=== PATIENT | male | born 1935 | race Asian ===

== ENCOUNTER 2023-03-22 19:10 | Inpatient (IN) | payer MEDICARE, OTHER ==
[~2023-03-22] VITALS: Ht 160 cm; Wt 60.1 kg
[2023-03-22] MEDS ORDERED: ONDANSETRON INJECTION 4 MG/2 ML (SDV) IVP PRN (19:45)
[2023-03-22] MEDS ORDERED: PROMETHAZINE INJ 25 MG/ML VIAL IVP PRN (19:45)
[2023-03-22 20:15] VITALS: BP 139/65
[2023-03-22] MEDS ORDERED: NS IV 1000 ML 1,000 ML ONE (21:10)
[2023-03-22] MEDS: NS IV 1000 ML 1,000 ML IV SCH (21:29)
[2023-03-22] MEDS: fentaNYL INJECTION 100 MCG/2 ML VIAL IVP PRN (21:30)
[2023-03-23] VITALS (7 sets, daily range): BP systolic 131–156; BP diastolic 62–79
[2023-03-23] MEDS: fentaNYL INJECTION 100 MCG/2 ML VIAL IVP PRN (02:10)
[2023-03-23] MEDS ORDERED: RT-Ipratropium/Albuterol NEB 3 ML VIAL ONE (02:32)
[2023-03-23] MEDS: RT-Ipratropium/Albuterol NEB 3 ML VIAL INH PRN (02:38)
[2023-03-23] MEDS ORDERED: fentaNYL INJECTION 100 MCG/2 ML VIAL IVP PRN (02:40)
[2023-03-23 06:02] LABS: BASOPHILS % (AUTO) 0 % (0-10); EOSINOPHILS % (AUTO) 0 % (0-10); HEMATOCRIT 38 % (40-54); HEMOGLOBIN 12.8 g/dL (13.3-17.7); LYMPHOCYTES # (AUTO) 0.3 10^3/uL (1.0-4.0); LYMPHOCYTES % (AUTO) 2 % (12-44); MEAN CORPUSCULAR HEMOGLOBIN 29 pg (25-34); MEAN CORPUSCULAR HGB CONC 34 g/dL (32-36); MEAN CORPUSCULAR VOLUME 86 fL (80-99); MEAN PLATELET VOLUME 9.3 fL (9.0-12.2); MONOCYTES # (AUTO) 1.4 10^3/uL (0.0-1.0); MONOCYTES % (AUTO) 8 % (0-12); NEUTROPHILS # (AUTO) 15.4 10^3/uL (1.8-7.8); NEUTROPHILS % (AUTO) 89 % (42-75); PLATELET COUNT 229 10^3/uL (130-400); WHITE BLOOD COUNT 17.3 10^3/uL (4.3-11.0)
[2023-03-23 06:04] LABS: ALBUMIN 3.6 GM/DL (3.2-4.5); POTASSIUM 3.5 MMOL/L (3.6-5.0)
[2023-03-23 06:06] LABS: CALCIUM 8.8 MG/DL (8.5-10.1)
[2023-03-23 06:07] LABS: TOTAL PROTEIN 6.7 GM/DL (6.4-8.2)
--- NOTE | 2023-03-23 06:07 | History & Physical ---
TREMAYNE ABRAHAM MD, RESIDENT 03/23/23 0607: HPI History of Present Illness: CC: Abdominal pain Patient presented to the ED for lower abdominal pain. He states that this has been ongoing for 2 days with associated nausea and vomiting. He states his last large bowel movement was about 1 week ago and had been having occasional small bowel movements off and on over the last week. He denies any fevers. Does note that he was having some droplets of blood per rectum. He initially thought that it was related to his chronic right inguinal hernia and thus he presented to [facility] for further evaluation. At [facility], abdominal x-ray was obtained which was concerning for possible obstruction and thus he was sent to the hospital for CT scan and further work-up. Overnight, patient was noted to have significant lower abdominal pain as well as difficulty breathing. CT scan was initially scheduled for the morning but then was obtained overnight. He also noted to be having difficulty controlling his urine. Bladder scan was done which was noted to have 900 cc of urine thus a Camargo was placed with improvement in patient's symptoms. This morning, patient still states that he is having a little bit of difficulty breathing but notes that his abdominal pain is slowly improving. He has not had a bowel movement yet. Denies any nausea and vomiting this AM. Source: patient Exam Limitations: language barrier Date seen by provider: Mar 23, 2023 Time Seen by Provider: 07:20 Attending Physician Kena,Local Physician PCP Admitting Physician: Marimar Anderson MD Attending Physician: Marimar Anderson MD Consult Date of Admission Mar 22, 2023 at 19:56 Home Medications Home Medications Reviewed patient Home Medication Reconciliation performed by pharmacy medication reconciliations drafting technician and/or nursing. Patients Allergies have been reviewed. Allergies Coded Allergies: No Known Drug Allergies (Unverified , 03/22/23) OTV-Wlfcjg-Vycyle Hx Patient Social History Smoking Status: Light Tobacco Smoker Alcohol Use?: No Tobacco type used: Cigarettes Immunizations Up To Date Influenza Vaccine Up-to-Date: No; Not Current Review of Systems ([facility]) Constitutional: no symptoms reported EENTM: no symptoms reported Respiratory: No cough; short of breath Cardiovascular: No chest pain, No palpitations Gastrointestinal: RLQ, LLQ, constipation; No diarrhea, No nausea, No vomiting Genitourinary: No dysuria; incontinence Musculoskeletal: no symptoms reported Skin: no symptoms reported Psychiatric/Neurological: No Symptoms Reported Reviewed Test Results Reviewed Test Results Lab Laboratory Tests 03/23/23 05:28: White Blood Count 17.3H, Red Blood Count 4.43, Hemoglobin 12.8L, Hematocrit 38L, Mean Corpuscular Volume 86, Mean Corpuscular Hemoglobin 29, Mean Corpuscular Hemoglobin Concent 34, Red Cell Distribution Width 13.3, Platelet Count 229, Mean Platelet Volume 9.3, Immature Granulocyte % (Auto) 1, Neutrophils (%) (Auto) 89H, Lymphocytes (%) (Auto) 2L, Monocytes (%) (Auto) 8, Eosinophils (%) (Auto) 0, Basophils (%) (Auto) 0, Neutrophils # (Auto) 15.4H, Lymphocytes # (Auto) 0.3L, Monocytes # (Auto) 1.4H, Eosinophils # (Auto) 0.0, Basophils # (Auto) 0.0, Immature Granulocyte # (Auto) 0.1, Neutrophils % (Manual) 88, Lymphocytes % (Manual) 3, Monocytes % (Manual) 9, Blood Morphology Comment NORMAL, Sodium Level 134L, Potassium Level 3.5L, Chloride Level 104, Carbon Dioxide Level 19L, Anion Gap 11, Blood Urea Nitrogen 19H, Creatinine 1.43H, Estimat Glomerular Filtration Rate 48, BUN/Creatinine Ratio 13, Glucose Level 1 11H, Calcium Level 8.8, Corrected Calcium 9.1, Total Bilirubin 1.4H, Aspartate Amino Transf (AST/SGOT) 34, Alanine Aminotransferase (ALT/SGPT) 28, Alkaline Phosphatase 126, Total Protein 6.7, Albumin 3.6 03/23/23 08:24: Urine Color [Pending], Urine Clarity [Pending], Urine pH [Pending], Urine Specific [place] [Pending], Urine Protein [Pending], Urine Glucose (UA) [Pending], Urine Ketones [Pending], Urine Nitrite [Pending], Urine Bilirubin [Pending], Urine Urobilinogen [Pending], Urine Leukocyte Esterase [Pending], Urine RBC (Auto) [Pending], Urine RBC [Pending], Urine WBC [Pending], Urine Crystals [Pending], Urine Bacteria [Pending], Urine Casts [Pending], Urine Mucus [Pending], Urine Culture Indicated [Pending] Radiology Chest x-ray (03/22/2023): IMPRESSION: Enteric catheter is present extending into the right upper abdomen, likely within the distal stomach. Mild background interstitial pulmonary opacities of uncertain chronicity. This may simply relate to mild chronic interstitial lung disease, though interstitial infiltrate or even interstitial edema cannot completely be excluded. CT abdomen/pelvis (03/23/2023): IMPRESSION: Small dependently layering bilateral pleural effusions with adjacent scarring and/atelectasis. Mild infiltrate not completely excluded though felt less likely. Mural thickening of the sigmoid colon related to poor distention versus colitis. Mild fat stranding of the proximal left ureter and central left kidney. This could relate to a urinary tract infection. Recommend correlation with urinary analysis. No bowel obstruction with enteric catheter extending into the body of the stomach. Large fat containing right inguinal hernia which displaces the base of the penis. Indeterminate renal and hepatic hypodensities which are not completely evaluated without use of intravenous contrast. Statistically, these likely relate to cysts. Physical Exam-([facility]) Physical Exam Vital Signs VS - Last 72 Hours, by Label 03/22/23 03/23/23 03/23/23 03/23/23 20:15 00:00 02:38 03:41 Temp 37.6 37.3 36.6 Pulse 89 96 109 Resp 18 24 20 B/P (MAP) 139/65 (89) 145/72 (96) 146/77 (100) Pulse Ox 96 94 90 O2 Delivery Room Air Nasal Cannula O2 Flow Rate 2.00 03/23/23 03/23/23 03/23/23 03/23/23 07:28 09:48 09:56 11:38 Temp 37.2 37.4 Pulse 108 103 Resp 17 16 B/P (MAP) 146/74 (98) 146/75 (98) Pulse Ox 98 98 95 O2 Delivery Nasal Cannula Nasal Cannula Nasal Cannula Nasal Cannula O2 Flow Rate 3.00 3.00 2.00 2.00 Capillary Refill : General Appearance: no apparent distress HEENT: PERRL/EOMI Neck: full range of motion Respiratory: lungs clear, normal breath sounds, no respiratory distress, no accessory muscle use Cardiovascular: regular rate, rhythm, no edema, no murmur Gastrointestinal: abnormal bowel sounds (Hypoactive); No distended; tenderness (Mild left lower and right lower quadrant tenderness), other (NG tube in place) Genital/Rectal: other (Right inguinal hernia, reducible) Extremities: normal range of motion Neurologic/Psychiatric: alert, normal mood/affect, oriented x 3 Skin: normal color Assessment/Plan Assessment/Plan Admission Status: Inpatient Order (span 2 midnights) Reason for Inpatient Admission: Concern for bowel obstruction (1) Urinary tract infection Status: Acute Assessment & Plan: CT abdomen notable for mild fat stranding around the ureters. UA positive for UTI, blood likely from trauma due to camargo placement. Patient technically meets sepsis criteria due to leukocytosis and tachycardia. Plan: -Starting IV ceftriaxone 1g daily for 7 days -follow urine culture -trend daily CBC -Patient may need eventual discharge with catheter supplies as he likely has retention. Would benefit from urology f/u in the outpatient (2) Sepsis Status: Acute Assessment & Plan: Likely urosepsis, meeting criteria with tachycardia and leukocytosis. Plan: -See above (3) Bowel obstruction Status: Acute Assessment & Plan: Patient initially admitted for bowel obstruction management due to to obstruction noted on outpatient abdominal x-ray. Patient has been n.p.o., has an NG tube in place and pain is currently well controlled at this time. Patient is receiving fluids. CT abdomen was negative for obstruction. Plan: -Will pull NG tube today -CLD -Monitor for distention and abdominal pain (4) Shortness of breath Status: Acute Assessment & Plan: Likely due to sepsis. Plan: -Continue plan per above -Wean oxygen as tolerated. (5) Hypertension Status: Chronic Assessment & Plan: Holding home meds for now, consider restarting if SBP > 150. (6) Inguinal hernia Status: Chronic Assessment & Plan: Consulted surgery for evaluation. Likely will complete repai r outpatient if indicated. MARIMAR ANDERSON MD 03/23/23 1526: Home Medications Allergies Coded Allergies: No Known Drug Allergies (Unverified , 03/22/23) Supervisory-Addendum Brief Supervisory Addendum I personally performed the lo portions of the visit, discussed case with resident and concur with resident documentation of history, physical exam, assessment and treatment plan unless otherwise noted. Abdominal pain likely 2/2 severe retention, since camargo placement pain has almost resolved. Will D/c NG and start CLD UTI Urinary Retention Sepsis: Resolved Large R inguinal hernia BPH TREMAYNE ABRAHAM MD, RESIDENT Mar 23, 2023 06:07 MARIMAR ANDERSON MD Mar 23, 2023 15:26
[2023-03-23 06:08] LABS: BILIRUBIN,TOTAL 1.4 MG/DL (0.1-1.0)
[2023-03-23 06:10] LABS: CREATININE SERUM 1.43 MG/DL (0.60-1.30)
[2023-03-23 06:53] LABS: LYMPHOCYTES % (MANUAL) 3 %; MONOCYTES % (MANUAL) 9 %; NEUTROPHILS % (MANUAL) 88 %; RBC MORPH NORMAL
--- NOTE | 2023-03-23 07:54 | Diagnostic Imaging Report ---
PROCEDURE: CT chest, abdomen, and pelvis without contrast. TECHNIQUE: Multiple contiguous axial images were obtained through the chest, abdomen, and pelvis without the use of intravenous contrast. Auto Exposure Controls were utilized during the CT exam to meet ALARA standards for radiation dose reduction. INDICATION: Small bowel obstruction COMPARISON: Radiograph the chest dated 03/22/2023 FINDINGS: Enteric catheter is identified extending into the body of the stomach. No pathologically enlarged lymph nodes within the chest. Scattered vascular calcifications without aneurysmal dilatation of the thoracic aorta. This includes calcifications within the coronary arteries. The heart is within normal limits in size. No significant pericardial effusion. Tiny bibasilar pleural effusions. No pneumothorax. Mild patchy reticular and groundglass opacities are identified, particularly within the inferior bilateral lower lobes. Predominantly calcified 1 cm right upper lobe pulmonary nodule. Additional densely calcified immediately adjacent right upper lobe pulmonary nodule is also present. Scattered degenerative changes without acute osseous abnormality within the chest. Indeterminate 1 cm hypodensity within the left hepatic lobe. The unenhanced liver is otherwise unremarkable. The unenhanced spleen is unremarkable. The adrenal glands are unremarkable. The pancreas is unremarkable. Mild fat stranding is identified adjacent to the proximal left ureter and central left pelvis. No obstructing calculus. Indeterminate hypodensities within bilateral kidneys. Bilateral kidneys and ureters are otherwise unremarkable. Advanced vascular calcifications without aneurysmal dilatation of the abdominal aorta. Large sized fat-containing right inguinal hernia which displaces the base of the penis. Sanchez catheter is present within the decompressed urinary bladder. The urinary bladder is unable to be evaluated secondary to decompression. The prostate gland is enlarged. No bowel obstruction or pneumatosis. Mild mural thickening of the sigmoid colon, though this region is not well-distended. No significant adenopathy, free air, or free fluid within the abdomen or pelvis. Mild S-shaped curvature of the spine with scattered osseous degenerative changes without acute osseous abnormality IMPRESSION: Small dependently layering bilateral pleural effusions with adjacent scarring and/atelectasis. Mild infiltrate not completely excluded though felt less likely. Mural thickening of the sigmoid colon related to poor distention versus colitis. Mild fat stranding of the proximal left ureter and central left kidney. This could relate to a urinary tract infection. Recommend correlation with urinary analysis. No bowel obstruction with enteric catheter extending into the body of the stomach. Large fat containing right inguinal hernia which displaces the base of the penis. Indeterminate renal and hepatic hypodensities which are not completely evaluated without use of intravenous contrast. Statistically, these likely relate to cysts. Additional findings as described above. Agree with the majority of the preliminary interpretation. However, final report was called to patient's nurse as initial report did not mention the potential fat stranding about the proximal left ureter and central left kidney. Report is called to [facility]-Laura Millan, nurse by anitra at 7:53a.m. Dictated by: Dictated on workstation # [id number]
--- NOTE | 2023-03-23 08:37 | Diagnostic Imaging Report ---
Indication: NG tube placement COMPARISON: None available TECHNIQUE: 2 radiographs the chest dated 03/22/2023 FINDINGS: Enteric catheter is present with the distal tip and sidehole extending into the upper abdomen with the distal tip extending into the right upper abdomen. Low lung volumes with mild diffuse interstitial pulmonary opacities. No significant pleural effusion. No pneumothorax. Scattered osseous degenerative changes without acute osseous abnormality. IMPRESSION: Enteric catheter is present extending into the right upper abdomen, likely within the distal stomach. Mild background interstitial pulmonary opacities of uncertain chronicity. This may simply relate to mild chronic interstitial lung disease, though interstitial infiltrate or even interstitial edema cannot completely be excluded. Dictated by: Dictated on workstation # [id number]
[2023-03-23 08:56] LABS: CLARITY,URINE CLOUDY; COLOR,URINE YELLOW; PH,URINE 5.5 (5-9); PROTEIN,URINE 1+ (NEGATIVE)
[2023-03-23 08:57] LABS: BACTERIA,URINE MODERATE /HPF; BILIRUBIN,URINE NEGATIVE (NEGATIVE); GLUCOSE, URINE (UA) NEGATIVE (NEGATIVE); KETONES,URINE NEGATIVE (NEGATIVE); LEUKOCYTE ESTERASE ,URINE 1+ (NEGATIVE); NITRITE,URINE NEGATIVE (NEGATIVE); RBC,URINE >100 /HPF; SQUAMOUS EPITHELIAL CELL,UR RARE /HPF; WBC,URINE >100 /HPF
--- NOTE | 2023-03-23 09:11 | Consultation - Surgery ---
POLANCO 03/23/23 0911: History of Present Illness History of Present Illness Patient Consulted On([place]/time) 03/23/23 09:02 Date Seen by Provider: Mar 23, 2023 Time Seen by Provider: 09:00 History of Present Illness CC abdominal pain HPI: 87 y/o male presented to ED last night at around 8 pm with intense abdominal pain. He says his pain started at around 2 am yesterday and progressively worsened until the pain was so bad he could not breath. He feels pain in the LLQ and RLQ and abdomen is distended. Describes the pain as "heavy".He reported BM as normal but he was not able to urinate for past 3 days. Bladder scan showed 900cc of fluid so a camargo was placed. CT from last night showed mild fat stranding adjacent to the proximal left ureter, enlarged prostate, and large sized fat-containing right inguinal hernia which displaces the base of the penis. Denies any chest pain, or fever but had some nausea and vomiting before his arrival to the ED. WBC is 17.3 Allergies and Home Medications Allergies Coded Allergies: No Known Drug Allergies (Unverified , 03/22/23) Patient Home Medication List Home Medication List Reviewed: Yes Alprazolam (Xanax) 0.5 Mg Tablet, 0.5 MG PO HS PRN for ANXIETY, (Reported) Entered as Reported by: WILL ALVARADO on 03/23/231634 Last Action: New Order Aspirin (Aspirin) 81 Mg Tab.chew, 81 MG PO DAILY, (Reported) Entered as Reported by: WILL ALVARADO on 03/23/231634 Last Action: New Order Atorvastatin Calcium (Lipitor) 10 Mg Tablet, 10 MG PO HS, (Reported) Entered as Reported by: WILL ALVARADO on 03/23/231634 Last Action: New Order Diltiazem HCl (Diltiazem HCl) 30 Mg Tablet, 30 MG PO BID, (Reported) Entered as Reported by: WILL ALVARADO on 03/23/231634 Last Action: New Order Pantoprazole Sodium (Protonix) 40 Mg Tablet.dr, 40 MG PO DAILY, (Reported) Entered as Reported by: WILL ALVARADO on 03/23/231634 Last Action: New Order Past Kdtminf-Quofmd-Crwxes Hx Patient Social History Smoking Status: Former Smoker (smoked 2 cigs a day until 2 years ago. ) Alcohol Use?: Yes (drank occasionally until 2 years ago) Cardiovascular Cardiac Disorders: Angina (managed with diltiazem 30mg ) Gastrointestinal Gastrointestinal Disorders: Abdominal Hernia (Right inguinal hernia ), Gastroesophageal Reflux (takes aciloc 150) Review of Systems-General Constitutional: no symptoms reported; No dizziness, No fever, No malaise, No weakness EENTM: No blurred vision, No double vision Respiratory: No cough; short of breath Gastrointestinal: RLQ (feels full, not tender), LLQ (feels full not tender ) Genitourinary: see HPI, decreased output; No discharge, No hematuria Musculoskeletal: no symptoms reported; No back pain, No joint pain Skin: no symptoms reported; No change in color Psychiatric/Neurological: No Symptoms Reported; Denies Headache Physical Exam-General Problems Physical Exam Vital Signs Vital Signs - First Documented 03/22/23 03/23/23 20:15 02:38 Temp 37.6 Pulse 89 Resp 18 B/P (MAP) 139/65 (89) Pulse Ox 96 O2 Delivery Room Air O2 Flow Rate 2.00 Capillary Refill : General Appearance: WD/WN, no apparent distress Respiratory: normal breath sounds, no respiratory distress, no accessory muscle use Cardiovascular: no edema, no murmur Gastrointestinal: normal bowel sounds, non tender, distended, hernia (R inguinal ) Extremities: no pedal edema, normal capillary refill Neurologic/Psychiatric: alert, normal mood/affect, oriented x 3 Skin: normal color, warm/dry Data Review Labs Laboratory Tests 03/23/23 05:28: White Blood Count 17.3H, Red Blood Count 4.43, Hemoglobin 12.8L, Hematocrit 38L, Mean Corpuscular Volume 86, Mean Corpuscular Hemoglobin 29, Mean Corpuscular Hemoglobin Concent 34, Red Cell Distribution Width 13.3, Platelet Count 229, Mean Platelet Volume 9.3, Immature Granulocyte % (Auto) 1, Neutrophils (%) (Auto) 89H, Lymphocytes (%) (Auto) 2L, Monocytes (%) (Auto) 8, Eosinophils (%) (Auto) 0, Basophils (%) (Auto) 0, Neutrophils # (Auto) 15.4H, Lymphocytes # (Auto) 0.3L, Monocytes # (Auto) 1.4H, Eosinophils # (Auto) 0.0, Basophils # (Auto) 0.0, Immature Granulocyte # (Auto) 0.1, Neutrophils % (Manual) 88, Lymphocytes % (Manual) 3, Monocytes % (Manual) 9, Blood Morphology Comment NORMAL, Sodium Level 134L, Potassium Level 3.5L, Chloride Level 104, Carbon Dioxide Level 19L, Anion Gap 11, Blood Urea Nitrogen 19H, Creatinine 1.43H, Estimat Glomerular Filtration Rate 48, BUN/Creatinine Ratio 13, Glucose Level 111H, Calcium Level 8.8, Corrected Calcium 9.1, Total Bilirubin 1.4H, Aspartate Amino Transf (AST/SGOT) 34, Alanine Aminotransferase (ALT/SGPT) 28, Alkaline Phosphatase 126, Total Protein 6.7, Albumin 3.6 03/23/23 08:24: Urine Color YELLOW, Urine Clarity CLOUDY, Urine pH 5.5, Urine Specific [place] 1.020, Urine Protein 1+H, Urine Glucose (UA) NEGATIVE, Urine Ketones NEGATIVE, Urine Nitrite NEGATIVE, Urine Bilirubin NEGATIVE, Urine Urobilinogen 1.0, Urine Leukocyte Esterase 1+H, Urine RBC (Auto) 3+H, Urine RBC >100H, Urine WBC >100H, Urine Squamous Epithelial Cells RARE, Urine Crystals NONE, Urine Bacteria MODERATEH, Urine Casts NONE, Urine Mucus NEGATIVE, Urine Culture Indicated YES Assessment/Plan Assessment/Plan Assessment/Plan Assessment: Urinary retention R inguinal hernia enlarged prostate leukocytosis Plan: NPO continue monitoring wbc f/u on urinalysis and culture YAHAIRA CARTERTT Kaci WINSLOW 03/24/23 1011: History of Present Illness History of Present Illness History of Present Illness Consult requested by Dr. Whitley for obstruction/right inguinal hernia. 87 year old male with abdominal pain distention for several days. Not had a bm for several days, and unable to urinate for about 3 days. Feeling better at time of me seeing him and has an NG tube and camargo catheter. Has a right inguinal hernia that has been present for 15 years. Has causes slight discomfort from time to time. Does go in and out. Had x ray suggestive of sbo. and CT scan as noted above. Allergies and Home Medications Allergies Coded Allergies: No Known Drug Allergies (Unverified , 03/22/23) Patient Home Medication List Home Medication List Reviewed: Yes Alprazolam (Xanax) 0.5 Mg Tablet, 0.5 MG PO HS PRN for ANXIETY, (Reported) Entered as Reported by: WILL ALVARADO on 03/23/231634 Last Action: New Order Aspirin (Aspirin) 81 Mg Tab.chew, 81 MG PO DAILY, (Reported) Entered as Reported by: WILL ALVARADO on 03/23/231634 Last Action: New Order Atorvastatin Calcium (Lipitor) 10 Mg Tablet, 10 MG PO HS, (Reported) Entered as Reported by: WILL ALVARADO on 03/23/231634 Last Action: New Order Diltiazem HCl (Diltiazem HCl) 30 Mg Tablet, 30 MG PO BID, (Reported) Entered as Reported by: WILL ALVARADO on 03/23/231634 Last Action: New Order Pantoprazole Sodium (Protonix) 40 Mg Tablet.dr, 40 MG PO DAILY, (Reported) Entered as Reported by: WILL ALVARADO on 03/23/231634 Last Action: New Order Past Zzzscki-Vufkad-Oetftm Hx Patient Social History Smoking Status: Former Smoker (smoked 2 cigs a day until 2 years ago. ) Reviewed Nursing Assessment Reviewed/Agree w Nursing PMH: Yes Family Medical History Significant Family History: No Pertinent Family Hx Review of Systems-General Constitutional: No chills, No diaphoresis EENTM: No blurred vision, No double vision Respiratory: No cough, No dyspnea on exertion; short of breath Cardiovascular: No chest pain, No palpitations Gastrointestinal: RLQ (feels full, not tender), LLQ (feels full not tender ), abdominal pain Genitourinary: decreased output; No discharge, No hematuria Musculoskeletal: No back pain, No joint pain Skin: No change in color, No change in hair/nails Psychiatric/Neurological: Denies Anxiety, Denies Depressed, Denies Emotional Problems All Other Systems Reviewed Negative Unless Noted: Yes (Negative excepted noted.) Physical Exam-General Problems Physical Exam General Appearance: no apparent distress, thin HEENT: PERRL/EOMI, normal ENT inspection Neck: non-tender, supple Respiratory: chest non-tender, no respiratory distress, no accessory muscle use Cardiovascular: regular rate, rhythm, no JVD Gastrointestinal: distended (minimal), hernia (R inguinal reduces) Rectal: deferred Back: normal inspection, no CVA tenderness Extremities: no pedal edema, normal capillary refill Neurologic/Psychiatric: alert, normal mood/affect, oriented x 3 Skin: normal color, warm/dry Lymphatic: no adenopathy Assessment/Plan Assessment/Plan Assessment/Plan Lower abodminal pain Urinary retention R inguinal hernia enlarged prostate leukocytosis NPO Small bowel follow through to prove no obstruction If normal will remove NG tube and start on clears. Ceftriaxone f/u on urinalysis and culture Consider repair of hernia as outpatient Supervisory-Addendum Brief Verification & Attestation Participated in pt care: history, MDM, physical Personally performed: exam, history, MDM, supervision of care Care discussed with: Medical Student Procedures: n/a Results interpretation: Verified all documentation Verification and Attestation of Medical Student E/M Service A medical student performed and documented this service in my presence. I reviewed and verified all information documented by the medical student and made modifications to such information, when appropriate. I personally performed the physical exam and medical decision making. Ilia Carter, Mar 23, 2023,19:13 POLANCO Mar 23, 2023 09:11 ILIA CARTER DO Mar 24, 2023 10:11
[2023-03-23] MEDS: NS IV 1000 ML 1,000 ML IV SCH ×2 (09:47→23:47)
[2023-03-23] MEDS: cefTRIAXone IV/IM 1,000 MG in NS (IVPB) 50 ML 50 ML IV SCH (09:49)
[2023-03-23] MEDS ORDERED: DIATRIZOATE MEGLUM/SODIUM 37% 120 ML (GASTROGRAFIN) NG ONE (12:45)
--- NOTE | 2023-03-23 15:50 | Diagnostic Imaging Report ---
INDICATION: Abdominal pain and distention. TECHNIQUE: Small bowel study performed with injection of 120 mL of Gastrografin through the indwelling NG tube. FINDINGS: Stomach fills and empties promptly. Small bowel is normal in caliber throughout with no stricture or focal lesion. Contrast reached the right colon within 40 minutes. IMPRESSION: No evidence of small bowel obstruction. Dictated by: Dictated on workstation # [id number]
[2023-03-23] MEDS: TAMSULOSIN 0.4 MG (FLOMAX) CAP PO SCH ×2 (16:31→16:55)
[2023-03-23] MEDS ORDERED: ALPR0.5T PO (16:35)
[2023-03-23] MEDS ORDERED: DILT30TA PO (16:35)
[2023-03-23] MEDS ORDERED: ASPI-999 PO (16:35)
[2023-03-23] MEDS ORDERED: PANT40TA2 PO (16:35)
[2023-03-23] MEDS ORDERED: ATOR10TA PO (16:35)
[2023-03-24 04:52] VITALS: BP 111/52
[2023-03-24 06:10] LABS: BASOPHILS % (AUTO) 1 % (0-10); EOSINOPHILS # (AUTO) 0.1 10^3/uL (0.0-0.3); EOSINOPHILS % (AUTO) 2 % (0-10); HEMATOCRIT 33 % (40-54); HEMOGLOBIN 11.5 g/dL (13.3-17.7); LYMPHOCYTES # (AUTO) 1.2 10^3/uL (1.0-4.0); LYMPHOCYTES % (AUTO) 14 % (12-44); MEAN CORPUSCULAR HEMOGLOBIN 30 pg (25-34); MEAN CORPUSCULAR HGB CONC 35 g/dL (32-36); MEAN CORPUSCULAR VOLUME 84 fL (80-99); MEAN PLATELET VOLUME 9.2 fL (9.0-12.2); MONOCYTES # (AUTO) 0.9 10^3/uL (0.0-1.0); MONOCYTES % (AUTO) 11 % (0-12); NEUTROPHILS # (AUTO) 6.1 10^3/uL (1.8-7.8); NEUTROPHILS % (AUTO) 73 % (42-75); PLATELET COUNT 200 10^3/uL (130-400); WHITE BLOOD COUNT 8.4 10^3/uL (4.3-11.0)
--- NOTE | 2023-03-24 06:12 | Progress Note ---
Subjective Subjective/Events-last exam Patient states he feels much better this morning. He is not having any shortness of breath and has more strength in him. He did have a bowel movement this morning that had blood in it. He states he was having some droplets of blood prior to presenting to the hospital but today's amount of blood was worse than usual. He otherwise would be okay with going home today. Review of Systems General: No Fatigue; Appetite HEENT: No Head Aches Pulmonary: No Dyspnea, No Cough Cardiovascular: No: Chest Pain, Palpitations, Edema Gastrointestinal: Hematochezia; No: Nausea, Vomiting, Abdominal Pain, Diarrhea, Constipation Genitourinary: No Dysuria, No Frequency Focused Exam Lactate Level 03/23/23 10:55: Lactic Acid Level 1.43 Objective Exam Last Set of Vital Signs Vital Signs Date Time Temp Pulse Resp B/P (MAP) Pulse Ox O2 Delivery O2 Flow Rate FiO2 03/24/23 04:52 36.9 93 20 111/52 (71) 92 Room Air 03/23/23 11:38 2.00 Capillary Refill : I&O Intake and Output 03/24/23 00:00 Intake Total 895 ml Output Total 2800 ml Balance -1905 ml Intake Oral 895 ml Output Urine Total 2800 ml # Bowel Movements 2 General: Alert, Oriented X3 HEENT: Mucous Memb Moist/[place] Neck: Supple Lungs: Clear to Auscultation Heart: Regular Rate, No Murmurs Abdomen: Normal Bowel Sounds, Soft, No Tenderness Extremities: No Edema Skin: No Rashes Neuro: Normal Speech Results/Procedures Lab Laboratory Tests 03/23/23 08:24: Urine Color YELLOW, Urine Clarity CLOUDY, Urine pH 5.5, Urine Specific [place] 1.020, Urine Protein 1+H, Urine Glucose (UA) NEGATIVE, Urine Ketones NEGATIVE, Urine Nitrite NEGATIVE, Urine Bilirubin NEGATIVE, Urine Urobilinogen 1.0, Urine Leukocyte Esterase 1+H, Urine RBC (Auto) 3+H, Urine RBC >100H, Urine WBC >100H, Urine Squamous Epithelial Cells RARE, Urine Crystals NONE, Urine Bacteria MODERATEH, Urine Casts NONE, Urine Mucus NEGATIVE, Urine Culture Indicated YES 03/23/23 10:55: Lactic Acid Level 1.43 03/24/23 06:02: Radiology Chest x-ray (03/22/2023): IMPRESSION: Enteric catheter is present extending into the right upper abdomen, likely within the distal stomach. Mild background interstitial pulmonary opacities of uncertain chronicity. This may simply relate to mild chronic interstitial lung disease, though interstitial infiltrate or even interstitial edema cannot completely be excluded. CT abdomen/pelvis (03/23/2023): IMPRESSION: Small dependently layering bilateral pleural effusions with adjacent scarring and/atelectasis. Mild infiltrate not completely excluded though felt less likely. Mural thickening of the sigmoid colon related to poor distention versus colitis. Mild fat stranding of the proximal left ureter and central left kidney. This could relate to a urinary tract infection. Recommend correlation with urinary analysis. No bowel obstruction with enteric catheter extending into the body of the stomach. Large fat containing right inguinal hernia which displaces the base of the penis. Indeterminate renal and hepatic hypodensities which are not completely evaluated without use of intravenous contrast. Statistically, these likely relate to cysts. Assessment/Plan Assessment/Plan Admission Status: Inpatient Order (span 2 midnights) (1) Urinary tract infection Status: Acute Assessment & Plan: CT abdomen notable for mild fat stranding around the ureters. UA positive for UTI, blood likely from trauma due to camargo placement. Patient technically meets sepsis criteria due to leukocytosis and tachycardia. Plan: -Continue IV ceftriaxone 1g daily for 7 days -urine culture pending -trend daily CBC -Removing Camargo today to see if patient is able to urinate on his own -Flomax started to see if this helps with urination -If patient is discharged today will send home on amoxicillin as he was receiving this antibiotic at home. We will follow-up urine culture to see if an tibiotic needs to be adjusted. (2) Sepsis Status: Resolved Assessment & Plan: Likely urosepsis, meeting criteria with tachycardia and leukocytosis. Leukocytosis and tachycardia has resolved as of this AM. Plan: -See above (3) Bowel obstruction Status: Resolved Assessment & Plan: Patient initially admitted for bowel obstruction management due to to obstruction noted on outpatient abdominal x-ray. CT abdomen was negative for obstruction and repeat x-ray was negative for obstruction. Plan: -Okay for regular diet (4) Shortness of breath Status: Resolved Assessment & Plan: Likely due to sepsis. Patient off of oxygen. Plan: -Continue to monitor respiratory status (5) Hypertension Status: Chronic Assessment & Plan: Holding home meds for now, consider restarting if SBP > 150. (6) Inguinal hernia Status: Chronic Assessment & Plan: Consulted surgery for evaluation. Hernia was reduced yesterday manually which likely may have caused patient's increased blood in stool. Plan: We will have surgery reevaluate (7) Hematochezia Status: Acute Assessment & Plan: Hemoglobin stable. See above TREMAYNE ABRAHAM MD, RESIDENT Mar 24, 2023 06:12
[2023-03-24 06:42] LABS: ALBUMIN 2.8 GM/DL (3.2-4.5); BILIRUBIN,TOTAL 0.8 MG/DL (0.1-1.0); CREATININE SERUM 0.81 MG/DL (0.60-1.30); POTASSIUM 3.1 MMOL/L (3.6-5.0); TOTAL PROTEIN 5.4 GM/DL (6.4-8.2)
[2023-03-24 07:17] VITALS: BP 109/62
[2023-03-24] MEDS ORDERED: POTASSIUM CHLORIDE 20 MEQ TABLET PO ONE ×2 (07:30→09:30)
--- NOTE | 2023-03-24 08:04 | Progress Note - Surgery ---
POLANCO 03/24/23 0804: Subjective Date Seen by a Provider: Mar 24, 2023 Time Seen by a Provider: 07:45 Subjective/Events-last exam Patient feels well today and has minimal pain in the abdomen and describes is as "nothing" compared to yesterday. Small bowel study from yesterday showed no obstruction and patient had 2 episodes of diarrhea post study. wbc dropped from 17.3 to 8.4 today. NG tube was removed. Patient desires to go home Review of Systems General: No Chills, No Night Sweats HEENT: No Head Aches, No Visual Changes Pulmonary: No Dyspnea, No Cough Cardiovascular: No: Chest Pain, Palpitations Gastrointestinal: No: Nausea, Vomiting Genitourinary: No Hematuria; Retention Musculoskeletal: No: neck pain, shoulder pain Neurological: No: Numbness, Confusion Focused Exam Lactate Level 03/23/23 10:55: Lactic Acid Level 1.43 Objective Exam Vital Signs Date Time Temp Pulse Resp B/P (MAP) Pulse Ox O2 Delivery O2 Flow Rate FiO2 03/24/23 07:17 36.3 65 18 109/62 (78) 92 Room Air 03/24/23 04:52 36.9 93 20 111/52 (71) 92 Room Air 03/23/23 23:50 37.6 105 133/65 (87) 93 Room Air 03/23/23 19:57 93 Room Air 03/23/23 19:42 37.8 104 18 131/62 (85) 93 Room Air 03/23/23 16:08 37.8 99 19 156/79 (104) 91 Room Air 03/23/23 11:38 37.4 103 16 146/75 (98) 95 Nasal Cannula 2.00 03/23/23 09:56 Nasal Cannula 2.00 03/23/23 09:48 98 Nasal Cannula 3.00 I & O 03/24/23 07:00 Intake Total 1495 ml Output Total 1500 ml Balance -5 ml Capillary Refill : General Appearance: No Apparent Distress, WD/WN HEENT: PERRL/EOMI, TMs Normal Neck: Non Tender, Supple Respiratory: Chest Non Tender, Lungs Clear, Normal Breath Sounds, No Accessory Muscle Use, No Respiratory Distress Cardiovascular: No Edema, No Murmur Gastrointestinal: soft, no organomegaly, abnormal bowel sounds (Hypoactive); No distended; tenderness (Mild left lower and right lower quadrant tenderness), other (NG tube in place) Neurologic/Psychiatric: Alert, Oriented x3 Results Lab Laboratory Tests 03/23/23 08:24: Urine Color YELLOW, Urine Clarity CLOUDY, Urine pH 5.5, Urine Specific [place] 1.020, Urine Protein 1+H, Urine Glucose (UA) NEGATIVE, Urine Ketones NEGATIVE, Urine Nitrite NEGATIVE, Urine Bilirubin NEGATIVE, Urine Urobilinogen 1.0, Urine Leukocyte Esterase 1+H, Urine RBC (Auto) 3+H, Urine RBC >100H, Urine WBC >100H, Urine Squamous Epithelial Cells RARE, Urine Crystals NONE, Urine Bacteria MODERATEH, Urine Casts NONE, Urine Mucus NEGATIVE, Urine Culture Indicated YES 03/23/23 10:55: Lactic Acid Level 1.43 03/24/23 06:02: White Blood Count 8.4, Red Blood Count 3.89L, Hemoglobin 11.5L, Hematocrit 33L, Mean Corpuscular Volume 84, Mean Corpuscular Hemoglobin 30, Mean Corpuscular Hemoglobin Concent 35, Red Cell Distribution Width 13.4, Platelet Count 200, Mean Platelet Volume 9.2, Immature Granulocyte % (Auto) 1, Neutrophils (%) (Auto) 73, Lymphocytes (%) (Auto) 14, Monocytes (%) (Auto) 11, Eosinophils (%) (Auto) 2, Basophils (%) (Auto) 1, Neutrophils # (Auto) 6.1, Lymphocytes # (Auto) 1.2, Monocytes # (Auto) 0.9, Eosinophils # (Auto) 0.1, Basophils # (Auto) 0.0, Immature Granulocyte # (Auto) 0.0, Sodium Level 136, Potassium Level 3.1L, Chloride Level 108H, Carbon Dioxide Level 19L, Anion Gap 9, Blood Urea Nitrogen 14, Creatinine 0.81, Estimat Glomerular Filtration Rate 86, BUN/Creatinine Ratio 17, Glucose Level 87, Calcium Level 8.0L, Corrected Calcium 9.0, Total Bilirubin 0.8, Aspartate Amino Transf (AST/SGOT) 54H, Alanine Aminotransferase (ALT/SGPT) 32, Alkaline Phosphatase 105, Total Protein 5.4L, Albumin 2.8L Assessment/Plan Assessment/Plan Assessment/Plan Assessment: Urinary retention R inguinal hernia enlarged prostate leukocytosis- resolved Plan: NPO continue monitoring wbc f/u on urinalysis and culture switch to oral antibiotics CARTER,ILIA D DO 03/24/232122: Subjective Subjective/Events-last exam Feeling better today. Hernia on right inguinal area popped back out. Minimal discomfort. Camargo removed today but not yet urinated. Tolerating clears. WBC normal. Having bowel function. Denies n/v fever sweats chills or chest pain. Objective Exam General Appearance: No Apparent Distress, Anxious HEENT: PERRL/EOMI, Normal ENT Inspection Neck: Non Tender, Supple Respiratory: Chest Non Tender, No Accessory Muscle Use, No Respiratory Distress Cardiovascular: Regular Rate, Rhythm, No JVD Gastrointestinal: soft; No distended; tenderness (minimal), hernia (right inguinal), other (no gross blood on rectal exam, feels may have internal hemorrhoid) Neurologic/Psychiatric: Alert, Oriented x3 Skin: Normal Color, Warm/Dry Lymphatic: No Adenopathy Assessment/Plan Assessment/Plan Assessment/Plan Urinary retention R inguinal hernia blood in stool enlarged prostate UTI leukocytosis- resolved ng tube removed and tolerating diet camargo just removed, make sure that he urinates, may need bladder scan/replacement of camargo consider hernia repair and colonoscopy, but due to age and overall condition, may not be that beneficial to improve overall condition. can follow up outpatient Supervisory-Addendum Brief Verification & Attestation Participated in pt care: history, MDM, physical Personally performed: exam, history, MDM, supervision of care Care discussed with: Medical Student Procedures: n/a Results interpretation: Verified all documentation Verification and Attestation of Medical Student E/M Service A medical student performed and documented this service in my presence. I reviewed and verified all information documented by the medical student and made modifications to such information, when appropriate. I personally performed the physical exam and medical decision making. Ilia Carter, Mar 24, 2023,21:37 POLANCO Mar 24, 2023 08:04 ILIA CARTER DO Mar 24, 2023 21:23
[2023-03-24] MEDS: cefTRIAXone IV/IM 1,000 MG in NS (IVPB) 50 ML 50 ML IV SCH (09:46)
[2023-03-24] MEDS: RT-Ipratropium/Albuterol NEB 3 ML VIAL INH PRN (10:27)
[2023-03-24 11:33] VITALS: BP 128/68
[2023-03-24] MEDS ORDERED: ACETAMINOPHEN 325 MG TABLET PO PRN (15:00)
[2023-03-24 16:08] VITALS: BP 112/66
[2023-03-24] MEDS: TAMSULOSIN 0.4 MG (FLOMAX) CAP PO SCH (17:01)
[2023-03-24] MEDS ORDERED: TMSL.4C PO (17:20)
--- NOTE | 2023-03-24 17:21 | Discharge Summary ---
Discharge Summary Hospital Course Problems/Diagnosis: (1) Urinary tract infection Status: Acute Assessment & Plan: CT abdomen notable for mild fat stranding around the ureters. UA positive for UTI, blood likely from trauma due to camargo placement. Patient technically meets sepsis criteria due to leukocytosis and tachycardia. Plan: -Camargo was removed today however patient was unable to void. Will be sent home with a Camargo and prescription for Flomax with close follow-up in the outpatient. Recommend follow-up with a urologist for further evaluation. Urine culture showed no growth however we will continue treatment of UTI in the outpatient given that patient was symptomatic. Will continue with Augmentin to complete a 7-day course. Family already has prescription at home. (2) Acute renal failure Status: Resolved Resolution Date/Time: 03/24/23 @ 17:31 Assessment & Plan: Initially noted on admission due to elevated creatinine which eventually resolved after placement of Camargo. 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 See rest of the plan above. (3) Sepsis Status: Resolved Resolution Date/Time: 03/24/23 @ 10:52 Assessment & Plan: Likely urosepsis, meeting criteria with tachycardia and leukocytosis. Leukocytosis and tachycardia has resolved as of this AM. Plan: -See above (4) Bowel obstruction Status: Resolved Resolution Date/Time: 03/24/23 @ 10:52 Assessment & Plan: Patient initially admitted for bowel obstruction management due to to obstruction noted on outpatient abdominal x-ray. CT abdomen was negative for obstruction and repeat x-ray was negative for obstruction. Plan: -Okay for regular diet (5) Shortness of breath Status: Resolved Resolution Date/Time: 03/24/23 @ 10:54 Assessment & Plan: Likely due to sepsis. Patient off of oxygen. Plan: -Continue to monitor respiratory status (6) Hypertension Status: Chronic Assessment & Plan: Holding home meds for now, consider restarting if SBP > 150. (7) Inguinal hernia Status: Chronic Assessment & Plan: Consulted surgery for evaluation. Hernia was reduced yester day manually which likely may have caused patient's increased blood in stool. Plan: Likely will have scheduled reduction in the outpatient. (8) Hematochezia Status: Acute Assessment & Plan: Hemoglobin stable. See above Hospital Course Date of Admission: Mar 22, 2023 at 19:56 Admission Diagnosis : Family Physician/Provider: No,Local Physician Date of Discharge: 03/24/23 Discharge Diagnosis: [UTI] Hospital Course: [Patient is an 87-year-old male who presented to the hospital with concerns for bowel obstruction that was noted on outside x-ray. Repeat CT abdomen/pelvis was negative for bowel obstruction but was notable for mild fat stranding around the ureters. Patient was initially n.p.o., managed with fluids and had an NG tube in place. Overnight on 03/22, he had worsening pain and shortness of breath. A Camargo was placed which relieved his symptoms. UA was obtained which was notable for urinary tract infection. He was started on IV ceftriaxone with resolution of his initial leukocytosis. He was consulted for evaluation of an inguinal hernia and small bowel obstruction which was ultimately ruled out. He will be scheduled in the outpatient for inguinal hernia reduction likely. To discharge patient had red blood in his stool. On exam he was noted to have a large hemorrhoid which was likely contributing to the bleeding as well as infl ammation from manual reduction of the inguinal hernia the day prior. Patient's Camargo was removed prior to discharge and patient was unable to urinate. A discussion was had that patient likely has issues with urinary retention which led to him being hospitalized in the first place. He will be discharged home with a Camargo and a prescription for Flomax. Recommend follow-up with a urologist in the outpatient to evaluate urinary retention issues. Family will continue Augmentin in the outpatient for treatment of UTI although no growth was noted on urine culture. We will continue treatment given that patient was symptomatic on presentation.] Labs and Pending Lab Test: Laboratory Tests 03/24/23 06:02: White Blood Count 8.4, Red Blood Count 3.89L, Hemoglobin 11.5L, Hematocrit 33L, Mean Corpuscular Volume 84, Mean Corpuscular Hemoglobin 30, Mean Corpuscular Hemoglobin Concent 35, Red Cell Distribution Width 13.4, Platelet Count 200, Mean Platelet Volume 9.2, Immature Granulocyte % (Auto) 1, Neutrophils (%) (Auto) 73, Lymphocytes (%) (Auto) 14, Monocytes (%) (Auto) 11, Eosinophils (%) (Auto) 2, Basophils (%) (Auto) 1, Neutrophils # (Auto) 6.1, Lymphocytes # (Auto) 1.2, Monocytes # (Auto) 0.9, Eosinophils # (Auto) 0.1, Basophils # (Auto) 0.0, Immature Granulocyte # (Auto) 0.0, Sodium Level 136, Potassium Level 3.1L, Chloride Level 108H, Carbon Dioxide Level 19L, Anion Gap 9, Blood Urea Nitrogen 14, Creatinine 0.81, Estimat Glomerular Filtration Rate 86, BUN/Creatinine Ratio 17, Glucose Level 87, Calcium Level 8.0L, Corrected Calcium 9.0, Total Bilirubin 0.8, Aspartate Amino Transf (AST/SGOT) 54H, Alanine Aminotransferase (ALT/SGPT) 32, Alkaline Phosphatase 105, Total Protein 5.4L, Albumin 2.8L Microbiology 03/23/23 Urine Culture - Final, Complete NO GROWTH Home Meds Active Flomax (Tamsulosin HCl) 0.4 Mg Cap 0.4 Mg PO DAILY@1800 14 Days Reported Xanax (Alprazolam) 0.5 Mg Tablet 0.5 Mg PO HS PRN Protonix (Pantoprazole Sodium) 40 Mg Tablet.dr 40 Mg PO DAILY Lipitor (Atorvastatin Calcium) 10 Mg Tablet 10 Mg PO HS Diltiazem HCl 30 Mg Tablet 30 Mg PO BID Aspirin 81 Mg Tab.chew 81 Mg PO DAILY Assessment/Pt DC Instructions Please see electronic discharge instructions given to patient. Discharge Diet: No Restrictions Consulations Consultations General surgery Discharge Physical Examination Allergies: Coded Allergies: No Known Drug Allergies (Unverified , 03/22/23) General Appearance: No Apparent Distress HEENT: PERRL/EOMI Respiratory: Chest Non Tender, Lungs Clear, Normal Breath Sounds, No Accessory Muscle Use, No Respiratory Distress Cardiovascular: Regular Rate, Rhythm, No Edema, No Murmur Gastrointestinal: Normal Bowel Sounds, Non Tender, Soft, Other (Large external hemorrhoid noted) Extremity: No Pedal Edema Neurologic/Psychiatric: Alert, Oriented x3 TREMAYNE ABRAHAM MD, RESIDENT Mar 24, 2023 17:21
--- NOTE | 2023-03-24 17:24 | Physician Query-Final Dx ---
Final Diagnosis Give Final Diagnosis Please give Final Diagnosis The medical record reflects the following clinical evidence: Clinical Indicators: Admission Labs: Cr 1.43, eGFR 48 did improve to 0.81 and 86, Risk Factor(s): Urinary retention, admitted with UTI with Sepsis, SBO Treatment: 2L NS, Lab monitoring, IV ABX for Sepsis, Sanchez insertion, Acute kidney failure, present on admission, resolved Other explanation of clinical findings Unable to determine (no explanation for clinical findings) Please clarify and document your clinical opinion in the progress notes and discharge summary including the definitive and/or presumptive diagnosis, (suspected or probable), related to the above clinical findings. Please include clinical findings supporting your diagnosis. Suzie Jones, MSN, RN Clinical [employer] [phone] SUZIE JONES Mar 24, 2023 17:24
[2023-03-24] MEDS ORDERED: LIDOCAINE UROJET 2% GEL 10 ML PKG TOP ONE (17:30)
[2023-03-24 18:17] VITALS: BP 112/66
== END 2023-03-24 18:40 | disposition home or self-care (01) | DRG 872 ==
LOC: 4TH 19:56 → EDSEX 19:56
PROVIDERS: ADMIT Family Medicine; ATTEND Family Medicine
DX: A41.9 Sepsis, unspecified organism (principal); N39.0 Urinary tract infection, site not specified; K92.1 Melena; N17.9 Acute kidney failure, unspecified; F17.210 Nicotine dependence, cigarettes, uncomplicated; I10 Essential (primary) hypertension; K40.90 Unilateral inguinal hernia, without obstruction or gangrene, not specified as recurrent; N40.1 Benign prostatic hyperplasia with lower urinary tract symptoms; R33.8 Other retention of urine
CPT/HCPCS: 36415; 71045; 71250; 74176; 74250; 80053; 81000; 83605; 85007; 85025; 85027; 87088; 94640; 94760